=== PATIENT | male | born 1995 | race Caucasian/White ===

== ENCOUNTER 2017-05-04 16:38 | Emergency (ER) ==
[2017-05-04 16:45] VITALS: BP 122/77; TEMP 100; BMI 22.3
--- NOTE | 2017-05-04 16:52 | ED.PDOC ---
General ED Provider: Dr. JODI DIOR JR Chief Complaint: Sore Throat Stated Complaint: since last night mild cough and sore throat--today is worse- [id number] strep throat,fever/chills,pain with swallowing; soa at times[ End ]100.0 70 20 100% 122/77 7/10 pain cough fever diff with secretions Time Seen by Physician: 16:51 Mode of Arrival: Walk-In Information Source: Patient Exam Limitations: No limitations Nursing and Triage Documentation Reviewed and Agree: No Review of Systems - Review Of Systems Constitutional: Reports: Fever, Weakness Eyes: Reports: No symptoms Ears, Nose, Mouth, Throat: Reports: Throat pain Respiratory: Reports: Cough (pleuritic abdominal and chest wall pain) Cardiac: Reports: No symptoms GI: Reports: No symptoms : Reports: No symptoms Musculoskeletal: Reports: No symptoms Skin: Reports: No symptoms Neurological: Reports: No symptoms Endocrine: Reports: No symptoms Hematologic/Lymphatic: Reports: No symptoms All Other Systems: Other Past Medical History - Past Medical History Previously Healthy: Yes Endocrine: Reports: None Cardiovascular: Reports: None Respiratory: Reports: None Hematological: Reports: None Gastrointestinal: Reports: None Genitourinary: Reports: None Neuro/Psych: Reports: None Musculoskeletal: Reports: None Cancer: Reports: None - Surgical History General Surgical History: Reports: None - Family History Family History: Reports: None - Social History Smoking Status: Current every day smoker, Heavy tobacco smoker Hx Substance Use: No Alcohol Screening: None - Immunizations Tetanus Shot up to Date: Yes Physical Exam - Physical Exam Appearance: Ill-appearing Ill-appearing: Mild Pain Distress: Mild Eyes: TASH, EOMI, Conjunctiva clear ENT: Ears normal, Nose normal, Oropharynx normal Neck: Supple Respiratory: Airway patent, Breath sounds equal, Respirations nonlabored, Rhonchi, Wheezes Cardiovascular: RRR, Pulses normal, No rub, No murmur GI/: Soft, Nontender, No masses, Bowel sounds normal, No Organomegaly Musculoskeletal: Normal strength, ROM intact, No edema, No calf tenderness Skin: Warm, Dry, Normal color (note two lesions left leg one on right) Neurological: Sensation intact, Motor intact, Reflexes intact, Cranial nerves intact, Alert, Oriented Psychiatric: Mood appropriate, Anxious Critical Care Note - Critical Care Note Total Time (mins): 0 Course - Course Vital Signs: Temp Pulse Resp BP Pulse Ox 12/05/17 16:39 100 F H 70 20 122/77 100 Departure - Departure Time of Disposition: 17:14 Disposition: HOME SELF-CARE Discharge Problem: Sore throat symptom, URTI (acute upper respiratory infection) Instructions: Pharyngitis (ED), Upper Respiratory Infection (ED) Condition: Good Pt referred to PMD for follow-up: Yes Additional Instructions: increase fluids Naprosyn for pain return if fever over 101.0 if worsening Prescriptions: Naproxen [Naprosyn] 500 mg PO Q12HR PRN #30 tablet PRN Reason: PAIN Allergies/Adverse Reactions: Allergies No Known Allergies Allergy (Unverified 05/04/17 16:46) Home Medications: Ambulatory Orders Naproxen [Naprosyn] 500 mg PO Q12HR PRN #30 tablet 05/04/17
[2017-05-04] MEDS ORDERED: ULTRAM PO STA (17:13)
== END 2017-05-04 17:52 | disposition home or self-care (01) ==
LOC: ED 16:38
DX: J02.0 Streptococcal pharyngitis (principal); J06.9 Acute upper respiratory infection, unspecified; F17.210 Nicotine dependence, cigarettes, uncomplicated
CPT/HCPCS: 87651; 87880; 99283

== ENCOUNTER 2018-08-07 14:23 | Emergency (ER) ==
[2018-08-07 14:31] VITALS: BP 139/85; TEMP 97.5; BMI 23.0
--- NOTE | 2018-08-07 15:00 | ED.PDOC ---
General ED Provider: Dr. ANGELICA PONCE Chief Complaint: Extremity Pain/Injury Stated Complaint: right arm hurting in antecubital fossa mendez and above Time Seen by Physician: 14:10 Mode of Arrival: Walk-In Information Source: Patient Exam Limitations: No limitations Nursing and Triage Documentation Reviewed and Agree: Yes Does patient meet sepsis criteria?: No System Inflammatory Response Syndrome: Not Applicable Sepsis Protocol: For patient's 13 years and over: Temp is 96.8 and below OR 101 and greater Pulse >90 BPM Resp >20/minute Acutely Altered Mental Status Are patient's symptoms suggestive of a new infection, such as: -Pneumonia -Skin, Soft Tissue -Endocarditis -UTI -Bone, Joint Infection -Implantable Device -Acute Abdominal Infection -Wound Infection -Meningitis -Blood Stream Catheter Infection -Unknown Trauma/Injury Complaint Exam - Trauma Complaint/Exam Location of Pain or Injury: Reports: RUE Mechanism of Injury: Reports: Unknown Onset/Duration: severaql months Symptoms Are: Still present Initial Severity: Mild Current Severity: Mild Character: Reports: Dull, Aching Aggravating: Reports: Movement Alleviating: Reports: Rest Associated Signs and Symptoms: Reports: Extremity disuse Related History: Reports: Similar episode Penetrating Injury Risk Factors: Reports: None Related Surgical History: Reports: None Nexus Low Risk Criteria: No post-midline CS tender Skin Findings: Present: Normal findings. Absent: Open fracture Differential Diagnoses: Contusions, Dislocation, Hematoma, Sprain, Strain Review of Systems - Review Of Systems Constitutional: Reports: No symptoms Eyes: Reports: No symptoms Ears, Nose, Mouth, Throat: Reports: No symptoms Respiratory: Reports: No symptoms Cardiac: Reports: No symptoms GI: Reports: No symptoms : Reports: No symptoms Musculoskeletal: Reports: No symptoms Skin: Reports: No symptoms Neurological: Reports: No symptoms Endocrine: Reports: No symptoms Hematologic/Lymphatic: Reports: No symptoms All Other Systems: Reviewed and Negative Past Medical History - Past Medical History Previously Healthy: Yes Endocrine: Reports: None Cardiovascular: Reports: None Respiratory: Reports: None Hematological: Reports: None Gastrointestinal: Reports: None Genitourinary: Reports: None Neuro/Psych: Reports: None Musculoskeletal: Reports: None Cancer: Reports: None - Surgical History General Surgical History: Reports: None - Family History Family History: Reports: None - Social History Smoking Status: Current every day smoker Hx Substance Use: Yes (weed, smoke 4-5 days ago) Alcohol Screening: Occasionally - Immunizations Tetanus Shot up to Date: No Physical Exam - Physical Exam Appearance: Thin Ill-appearing: None Pain Distress: None Eyes: TASH ENT: Ears normal Neck: Supple Respiratory: Airway patent Cardiovascular: RRR GI/: Soft Musculoskeletal: Normal strength Skin: Warm Neurological: Sensation intact Critical Care Note - Critical Care Note Total Time (mins): 0 Course - Course Orders, Labs, Meds: Orders Category Date Time Status CT HUMERUS RIGHT W/O CONTRAST Stat RADS 08/07/18 15:[address] WRIST RIGHT W/O CONTRAST Stat RADS 08/07/18 15:04 Taken Vital Signs: Temp Pulse Resp BP Pulse Ox 08/07/18 14:28 97.5 F L 82 16 139/85 98 Departure - Departure Time of Disposition: 15:47 Disposition: HOME SELF-CARE Discharge Problem: Muscle strain, upper arm Instructions: Musculoskeletal Pain (ED) Condition: Good Pt referred to PMD for follow-up: No IPMP verified?: No Allergies/Adverse Reactions: Allergies No Known Allergies Allergy (Unverified 05/04/17 16:46) Home Medications: Ambulatory Orders 1 [No Reported Medications] 08/07/18 Disposition Discussed With: Patient
--- NOTE | 2018-08-07 15:40 | CT ---
EXAM: CT scan of the right humerus without contrast HISTORY: Pain, weakness in right arm TECHNIQUE: Imaging of the right humerus was performed without contrast. Axial images and coronal an d sagittal reconstructions were provided for interpretation. FINDINGS: The humeral head is seen in normal position. No acute fractures are seen. There is anato hyacinth alignment. The soft tissues are normal. IMPRESSION: No acute fracture dislocation seen within the right humerus.
--- NOTE | 2018-08-07 15:48 | CT ---
EXAM: CT of the right wrist without contrast History: Right wrist pain and weakness. Technique: Multiplanar CT images through the right wrist were obtained without the administration of IV contrast Findings: There is an age indeterminate mildly displaced avulsion fracture involving the dorsal aspe ct at the base of the distal phalanx of the fifth digit. No other fractures are seen. No dislocatio n. No abnormal calcifications or radiopaque foreign bodies. Joint spaces are preserved. No suspici ous lytic or blastic osseous lesions identified. Impression: Age indeterminate avulsion fracture at the dorsal base of the distal phalanx of the fift h digit.
== END 2018-08-07 16:04 | disposition home or self-care (01) ==
LOC: ED 14:23
DX: S46.911A Strain of unspecified muscle, fascia and tendon at shoulder and upper arm level, right arm, initial encounter (principal); X50.1XXA Overexertion from prolonged static or awkward postures, initial encounter; F17.210 Nicotine dependence, cigarettes, uncomplicated
CPT/HCPCS: 99283

== ENCOUNTER 2018-08-30 09:27 | Emergency (ER) ==
[2018-08-30 09:31] VITALS: BP 120/65; TEMP 100.2; BMI 21.7
--- NOTE | 2018-08-30 10:32 | ED.PDOC ---
General ED Provider: Dr. ANGELICA PONCE Chief Complaint: Sore Throat Stated Complaint: sore throat 2 days Time Seen by Physician: 09:35 Mode of Arrival: Walk-In Information Source: Patient Exam Limitations: No limitations Nursing and Triage Documentation Reviewed and Agree: Yes Does patient meet sepsis criteria?: No System Inflammatory Response Syndrome: Not Applicable Sepsis Protocol: For patient's 13 years and over: Temp is 96.8 and below OR 101 and greater Pulse >90 BPM Resp >20/minute Acutely Altered Mental Status Are patient's symptoms suggestive of a new infection, such as: -Pneumonia -Skin, Soft Tissue -Endocarditis -UTI -Bone, Joint Infection -Implantable Device -Acute Abdominal Infection -Wound Infection -Meningitis -Blood Stream Catheter Infection -Unknown EENT Complaint Exam - Throat Complaint/Exam Onset/Duration: 2 days Symptoms Are: Still present Timimg: Constant Initial Severity: Moderate Current Severity: Mild Aggravating: Reports: Eating Alleviating: Reports: None Associated Signs and Symptoms: Reports: Fever Related History: Reports: Similar Episode Uvula Midline: Yes Jaqueline-tonsillar Fluctuence: No Scarlatinaform Rash Present: No Stridor Present: No Sinus Tenderness Present: No Tonsillar Hypertrophy Present: No Tonsillar Exudate Present: Yes Jaqueline-tonsillar Swelling Present: No Adenopathy Present: No Splenomegaly Present: No Differential Diagnoses: Influenza, Pharyngitis Review of Systems - Review Of Systems Constitutional: Reports: Fever Eyes: Reports: No symptoms Ears, Nose, Mouth, Throat: Reports: Throat pain Respiratory: Reports: No symptoms Cardiac: Reports: No symptoms GI: Reports: No symptoms : Reports: No symptoms Musculoskeletal: Reports: No symptoms Skin: Reports: No symptoms Neurological: Reports: No symptoms Endocrine: Reports: No symptoms Hematologic/Lymphatic: Reports: No symptoms All Other Systems: Reviewed and Negative Past Medical History - Past Medical History Previously Healthy: Yes Endocrine: Reports: None Cardiovascular: Reports: None Respiratory: Reports: None Hematological: Reports: None Gastrointestinal: Reports: None Genitourinary: Reports: None Neuro/Psych: Reports: None Musculoskeletal: Reports: None Cancer: Reports: None - Surgical History General Surgical History: Reports: None - Family History Family History: Reports: None - Social History Smoking Status: Current every day smoker Hx Substance Use: Yes (weed) Alcohol Screening: Occasionally Physical Exam - Physical Exam Appearance: Well-appearing Ill-appearing: Mild Pain Distress: None Eyes: TASH ENT: Erythema, Exudate Neck: Supple Respiratory: Airway patent Cardiovascular: RRR GI/: Soft Musculoskeletal: Normal strength Skin: Warm Neurological: Sensation intact Psychiatric: Affect appropriate Critical Care Note - Critical Care Note Total Time (mins): 0 Course - Course Orders, Labs, Meds: Lab Review 08/30/18 09:35 Influ A Molecular Assay Positive by naat H Influ B Molecular Assay Negative by naat Orders Category Date Time Status FLU A/B MOLECULAR Stat LAB 08/30/18 09:35 Completed RAPID STREP SCREEN [MOLECULAR GROUP A STREP] Stat LAB 08/30/18 09:35 Completed Vital Signs: Temp Pulse Resp BP Pulse Ox 08/30/18 09:27 100.2 F H 74 18 120/65 95 Departure - Departure Time of Disposition: 10:37 Disposition: HOME SELF-CARE Discharge Problem: Viral syndrome Instructions: Viral Syndrome (ED) Condition: Good Pt referred to PMD for follow-up: Yes IPMP verified?: No Additional Instructions: Tamiflu 75 mg bid x 5 days.Hydration,rest. Allergies/Adverse Reactions: Allergies No Known Allergies Allergy (Verified 08/30/18 09:31) Home Medications: Ambulatory Orders 1 [No Reported Medications] 08/07/18 Disposition Discussed With: Patient, Family
== END 2018-08-30 10:50 | disposition home or self-care (01) ==
LOC: ED 09:27
DX: B34.9 Viral infection, unspecified (principal); F17.210 Nicotine dependence, cigarettes, uncomplicated
CPT/HCPCS: 87502; 87651; 99283

== ENCOUNTER 2019-01-18 14:23 | Outpatient (CLI) ==
[2019-01-14 13:18] VITALS: BMI 23.0
== END 2019-01-18 14:24 | disposition home or self-care (01) ==
LOC: RHC-LAB 14:23 → FCC-LAB 14:24
PROVIDERS: ATTEND Family Medicine
DX: R04.2 Hemoptysis (principal); Z11.4 Encounter for screening for human immunodeficiency virus [HIV]; Z11.3 Encounter for screening for infections with a predominantly sexual mode of transmission
CPT/HCPCS: 36415; 86592; 86695; 86696; 86704; 86705; 86706; 86803; 87340; 87389; 87800